=== PATIENT | male | born 1995 | race Caucasian/White ===

== ENCOUNTER 2024-07-18 23:12 | Emergency (ER) | payer BC, SELFPAY ==
--- NOTE | ~2024-07-18 | XR_ITS ---
PA, oblique, and lateral views of the left index finger Clinical history laceration FINDINGS: No acute fracture or dislocation. Joint spaces are preserved. Possible soft tissue lacerati on of the midportion of the neck finger. IMPRESSION: No osseous or articular abnormality. Probable soft tissue laceration of the midportion of the index finger. Reviewed, dictated and finalized at [facility].
[2024-07-18 23:13] VITALS: BP 141/77; PULSE 101; RESP 20; TEMP 36.4; O2SAT 100
--- OUTSIDE RECORDS SUMMARY | 2024-07-18 23:14 | XMS_ITS | Data Portability ---
Author Organization [place] [facility], [place] - [facility] Address [address] [place] [address] Care Team Providers Care Client Technical Support Associate Name Role Phone BARNEYPABLO Primary Care Provider Assessment Encounter Date Assessment Date Assessment LastModified by Organization Details LastModified Time 05/20/2023 05/20/2023 I educated the patient to the 70-73% rate of efficacy for Lamisil and the fact that it takes almost a year for complete resolution. I discussed the medication and its occasional adverse effects. We also discussed the fact that as long as you have no pre-existing liver conditions such as cirrhosis, cysts or hepatitis, there is no increased rate of adverse reactions. Today I ordered a hepatic function panel test. Once the labs are recieved and normal, a prescription for pulse-dosed oral antifungal will be dispensed. The etiology and treatment options for chronic tinea pedis were discussed in detail with the patient. The patient can help alleviate symptoms by aerating toe web spaces at night by putting cotton or tissue in between toes, alternating shoes daily if possible so shoes can dry out, changing socks at least once during the day, wearing well-ventilated shoes or sandals, Written instructions regarding tinea pedis preventative care dispensed. The patient should purchase moisture wicking socks containing synthetic material like CoolMax and avoid using cotton socks. The patient was advised that more permanent resolution of chronic dermatophytosis requires complete treatment of his mycotic nails to help prevent recurrence. An Rx for terbinafine 1% cream will be applied to both feet daily. Clean Sweep spray dispensed to disinfect footwear and patient advised to launder socks in hot water and to purchase moisture wicking socks. f/u 3 months. May consider adding laser treatment if minimal improvement. [email or web address] Not available 05/20/2023 17:01:28 Plan of Treatment Reminders Order Date Submit Date Provider Last Modified By Organization Details Last Modified Time Details Appointments None recorded . Lab hepatic function panel, serum 2023 [facility], [address] [facility], [place], [address], 13:21:27 Referral None recorded . Procedures None recorded . Surgeries None recorded . Imaging None recorded . Medication Orders terbinaf ine HCl 1 % topical cream 2023 [id number], [address], [place], [phone], 16:56:53 Patient TargetsNo targets recorded. Patient Instructions Encounter Date Encounter Id Patient Instructions Last Modified By Organization Details Last Modified Time 05/20/2023 [id number] toenail fungus: care instructions [email or web address] Not available 05/20/2023 16:55:44 athlete's foot: care instructions [email or web address] Not available 05/20/2023 16:55:44 Reason for Referral None Reported. Results Created Date Observation Date Name Description Value Unit Range Abnormal Flag Note LastModifiedBy Organization Detail LastModifiedTime 05/24/19 24 05/26/2023 HEPAT IC FUNCT ION PANEL protein, total 7.4 g/dL 6.1-8. 1 normal Not Available [employer] [facility] [address] [place], [address], 05/26/2023 13:21:26 05/24/19 24 05/26/2023 HEPAT IC FUNCT ION PANEL albumin 4.9 g/dL 3.6-5. 1 normal Not Available [employer] [facility] [address] [place], [address], 05/26/2023 13:21:26 05/24/19 24 05/26/2023 HEPAT IC FUNCT ION PANEL globulin 2.5 g/dL_ (calc ) 1.9-3. 7 normal Not Available [place] [address] [place], [address], 05/26/2023 13:21:26 05/24/19 24 05/26/2023 HEPAT IC FUNCT ION PANEL albumin/glob ulin ratio 2.0 (calc ) 1.0-2. 5 normal Not Available [place] [address] [place], [address], 05/26/2023 13:21:26 05/24/19 24 05/26/2023 HEPAT IC FUNCT ION PANEL bilirubin, total 1.5 mg/dL 0.2-1. 2 high Not Available [employer] [place] [address] [place], [address], 05/26/2023 13:21:26 05/24/19 24 05/26/2023 HEPAT IC FUNCT ION PANEL bilirubin, direct 0.3 mg/dL < or = 0.2 high Not Available [place] [address] [place], [address], 05/26/2023 13:21:26 05/24/19 24 05/26/2023 HEPAT IC FUNCT ION PANEL bilirubin, indirect 1.2 mg/dL _(chico c) 0.2-1. 2 normal Not Available [place] [address] [place], [address], 05/26/2023 13:21:26 05/24/19 24 05/26/2023 HEPAT IC FUNCT ION PANEL alkaline phosphatase 64 U/L 36-130 normal Not Available [facility] [place] [place] [address] [place], [address], 05/26/2023 13:21:26 05/24/19 24 05/26/2023 HEPAT IC FUNCT ION PANEL AST 15 U/L 10-40 normal Not Available [place] [address] [place], [address], 05/26/2023 13:21:26 05/24/19 24 05/26/2023 HEPAT IC FUNCT ION PANEL ALT 17 U/L 9-46 normal Not Available [employer] [facility] [address] [place], [address], 05/26/2023 13:21:26 Result Notes None recorded. Procedures Surgical History Date Name Laterality Status Provider Name and Address Organization Details Recorded Time [id number] Nail unit biosy SK completed Jake Bowden, Brianne [address] [place] [address], [phone], [facility] 05/20/2023 16:54:11 Imaging Results None recorded. Procedure Notes None recorded. Medical Equipment None Reported. Allergies No known drug allergies Medications Name Sig Start Date Stop Date Status Note LastModified by Organization Details LastModified Time EB-L2 APPLY DAILY TO AFFFECTED TOENAILS 2023 active Not Available Not Available Not Avai lable buspirone 5 mg tablet TAKE 1 TABLET BY MOUTH THREE TIMES DAILY active Not Available Not Available Not Available terbinafine HCl 1 % topical cream APPLY TO THE AFFECTED AND SURROUNDING AREAS OF SKIN BY TOPICAL ROUTE ONCE DAILY 2023 active Not Available Not Available Not Avai lable dextroamphet amine-amphet amine 10 mg tablet TAKE 1/2 TABLET BY MOUTH TWICE DAILY active Not Available Not Available No t Available ciclopirox 8 % topical solution APPLY TO AFFECTED AREA TOPICALLY. PERFERABLY AT BEDTIME OR 8 HOURS BEFORE WASHING active Not Available Not Available No t Available terbinafine HCl 250 mg tablet TAKE 1 TABLET BY MOUTH EVERY DAY FOR 1 WEEK THEN STOP FOR 1 MONTH AND. REPEAT FOR 6 TOTAL PULSES active Not Available Not Available No t Available hydroxyzine HCl 25 mg tablet TAKE 1 TABLET BY MOUTH TWICE DAILY NEEDED FOR ANXIETY active Not Available Not Available No t Available sertraline 50 mg tablet TAKE 1 TABLET BY MOUTH EVERY DAY active Not Available Not Available No t Available buspirone active Not Available Not Soraida ilable Not Available Vitals Date Recorded Body height Body mass index (BMI) Body weight Body height Body mass index (BMI) Body weight Provider Name and Address Organization Details Last Updated DateTime 05/20/2023 180.34 cm 25.5 kg/m2 78774.4 g 180.34 cm 25.5 kg/m2 79339.4 g Dimple Srinivasan [facility] 16:43:48 Social History Question Answer Notes LastModified by Organizat ion Details LastModified Time Tobacco Smoking Status Never Smoker [place], [facility] 05/20/2023 16:38:27 What Is Your Level Of Alcohol Consumption? Heavy [email or web address] Information not available 05/20/2023 Size Of Shoes 10.5-11 [email or web address] Information not available 05/20/2023 Do You Use Any Illicit Or Recreational Drugs? No [email or web address] Information not available 05/20/2023 Do You Or Have You Ever Used Any Other Forms Of Tobacco Or Nicotine? No [email or web address] Information not available 05/20/2023 Sex: Unknown Functional Status Question Answer Note LastModified by Organization D etails LastModified Time What is your exercise level? Heavy [email or web address] Information not available 05/20/2023 Mental Status None recorded. Family History Relationship Description Onset Age of this Age Resolved Age Notes LastModified by Organization Details LastModified Time Father No current problems or disability [email or web address] Not available 05/05 16:38:19 Mother No current problems or disability [email or web address] Not available 05/05 16:38:19 Medical History Condition Response HIV or AIDS N Coronary Artery Disease N Seizure Disorder N Gout N High Blood Pressure N Menopause N Lung Condition N Depression N Pacemaker N Sciatica N Urinary Tract Infections N Anxiety Disorder N Arthritis N Ear Problems N Cancer N Eye Problems N Stroke N Stomach Problems N High Cholesterol N Liver Disease N Rheumatoid Arthritis N Rash N Kidney Disease N Tuberculosis or TB N Ulcers on Legs or Feet N Heart Problems N Clot in Lung or Pulmonary Embolism N Phlebitis or Venous Blood Clot N Migraines N Anemia N Back Pain N Neurologic Disease N Heart Attack (NE) N Diabetes N Bleeding Disorder N Abuse of Alcohol or Drugs N Back injury N Dementia N Peripheral Vascular Disease N Sinus Conditions N Thyroid Disorder N Broken Bone N Hepatitis N Heart Disease N Osteoporosis N Past Encounters Encounter ID Performer Location Encounter Start Date Encounter Closed Date Diagnosis/Indication Diagnosis SNOMED-CT Code Diagnosis ICD10 Code Diagnosis Note [id number] LAURO EsparzaM [facility] [address] [place] [address] 05/20/2023 16:26:13 05/20/2023 16:54:04 Onychomycosis 917863758 B35.1 1-5 bilateral- moderate Tinea pedis 5557618 B35. 3 forefoot distributi on, mild Pain in toe 094705707 M7 9.675 M79.674 Health Concerns Section Related Observation LastModified by Organization Detai ls LastModified Time None Recorded Concern Status LastModified by Organization Details LastModified Time None Recorded Advance Directives Directive None Recorded Payers Encounter Date Sequence Insurance Name Policy Number Policy Rivas Covered Member ID Rivas Member ID Guarantor Name 05/20/2023 1 [employer] KIERA MASON ([place]O) [id number] Kurt Culp [id number] Kurt Culp Notes Date Note Type Note Provider Name and Address Organization Details Recorded Time 05/20/2023 text/html Nails--Reported bypatient.Location: toenails left 1 2 3 4 5; toenails right 1, 2, 3, 4, 5 Nature:occasional sharp or shooting pain Severity:moderate Duration:several years Timing:gradual since last treatment Onset:all shoes apply uncomfortable pressure Alleviating Factors:cessation of activity; relief with treatment Aggravating Factors:precipitate d by wearing shoes; pressure Associated Symptoms:too thick to cut with clippers at home; afraid of causing an infection at home Course:has stayed the same Previous Treatment:topical OTC antifungal; using VicksNotes:Patient presents for bilateral fungal nails. Patient states this has been present for 6-7 years and he has tried Vicks VapoRub as well as a topical and a cream over the counter antifungal with no relief of symptoms.. Patient also has some dry, scaly, nonpruritic skin on the bottom of the forefoot. Jake Bowden DPM [address] [place], [address], [facility] 05/20/2023 17:01:55
--- OUTSIDE RECORDS SUMMARY | 2024-07-18 23:14 | XMS_ITS ---
Author Organization [facility] [employer] Address [address] [place] [address] Care Team Providers Care Fundraising Specialist Name Role Phone Enrico Kraft MD Primary Care Provider UnavailRoopa Lawler Unavailable [phone] Bladimir Infante Unavailable [phone] REASON FOR VISIT Telehealth, mild depression, anxiety and difficulty controlling thought patterns , Depression screening positive Medications Medication SIG (Take, Route, Frequency, Duration) Notes Start Date End Date Status hydrOXYzine HCl 25 MG Oral 09/15/2023 Unknown L-Methylfolate 7.5 MG Oral 09/15/2023 Unknown Ciclopirox 8% External 09/15/2023 Unkno wn busPIRone HCl 5 MG Oral 09/15/2023 Unknown Sertraline HCl 50 MG TAKE 1.5 TABLETS BY MOUTH ONCE A DAY for 90 Active Terbinafine HCl 250 MG Oral 09/15/2023 Unknown Adderall 10 MG 1 tablet Oral in the morning and half a tablet in the afternoon for 30 days 05/11/2024 Active Amphetamine-Dextroamphetam ine 10 MG Oral 09/15/2023 Unknown Social History Sex Assigned At : Social History Observation Description Sex Assigned At Male Encounters Encounter Location Date Provider Diagnosis [facility] [employer] [facility] [address] [place] [address] 06/22/2024 Bladimir Infante Generalized anxiety disorder F41.1 and Recurrent major depressive episodes, mild F33.0 Assessments Encounter Date Diagnosis (ICD Code) Assessment Notes Treatment Notes Treatment Clinical Notes Section Notes 06/22/2024 Generalized anxiety disorder (ICD-10 - F41.1) 28 year old single never male seen today for initial assessment to start individual psychotherapy. Stated that he has seen Roopa Recinos for the past month for medication therapy. Hx of anxiety and bouts of depression reported by client. Believes anxiety has been present for as long as he can recall. Client when asked what he worries the most about stated; I hyper fixate on things that will probably never happen , what if thoughts, and getting into trouble(in general and at work). Added that as a child he was hyper sensitive. Depression symptoms(before medication); feeling sick of being anxious, some problems experiencing norma in his life and lower appetite. Family hx is positive for anxiety(father) . No psych admissions reported or out patient therapy reported.Client born and raised in [place], [place] but later moved to [place], [place] to parents who have been for 30 years years. Relationship with parents is good and spends a lot of time with them. Described childhood as good, never had any big problems and had a lot of friends. Client is the youngest of two, older brother. Stated that they are friendly but would not call him a good friend. Client has no children. Stated that the hardest thing about being him is these issues (anxiety). 06/22/2024 Recurrent major depressive episodes, mild (ICD-10 - F33.0) 28 year old single never male seen today for initial assessment to start individual psychotherapy. Stated that he has seen Roopa Recinos for the past month for medication therapy. Hx of anxiety and bouts of depression reported by client. Believes anxiety has been present for as long as he can recall. Client when asked what he worries the most about stated; I hyper fixate on things that will probably never happen , what if thoughts, and getting into trouble(in general and at work). Added that as a child he was hyper sensitive. Depression symptoms(before medication); feeling sick of being anxious, some problems experiencing norma in his life and lower appetite. Family hx is positive for anxiety(father) . No psych admissions reported or out patient therapy reported.Client born and raised in [place], [place] but later moved to [place], [place] to parents who have been for 30 years years. Relationship with parents is good and spends a lot of time with them. Described childhood as good, never had any big problems and had a lot of friends. Client is the youngest of two, older brother. Stated that they are friendly but would not call him a good friend. Client has no children. Stated that the hardest thing about being him is these issues (anxiety). 06/22/2024 Other Clinical Notes : Client participated in individual psychotherapy([facility] T/Supportive) related to his hx of anxiety and depression. Seen today via telehealth from his home due to inclement weather. Based on today's session continued psychotherapy is recommended with no changes to treatment plan. Client presented to session well groomed and fully oriented with no risk of harm to self or others. Client verbal and engaged through out session with appropriate mood and affect. Reported upon presentation that he has been pretty good since last seen on 05.24.2024. Added that he and kali were on 06.18.[address] with plans of having actual weddinng ceremony at later date. Noted that he has been experiencing low energy for the past several days and has questioned whether he is a little depressed or not. Admitted however that he has not been as active as he nomally is due to the winter weather. Client further shared that he has been strggling, a little, with healthy emotional regulation and not taking on 's negative emotions. Client encouraged to balance emotions with logic as well as reading Co- Dependant No More by Angeli Dinh. On a positive note stated that he has done a better job of setting boundaries at work. Client receptive to session feeedback. Next session in three weeks. 28 year old single never male seen today for initial assessment to start individual psychotherapy. Stated that he has seen Roopa Recinos for the past month for medication therapy. Hx of anxiety and bouts of depression reported by client. Believes anxiety has been present for as long as he can recall. Client when asked what he worries the most about stated; I hyper fixate on things that will probably never happen , what if thoughts, and getting into trouble(in general and at work). Added that as a child he was hyper sensitive. Depression symptoms(before medication); feeling sick of being anxious, some problems experiencing norma in his life and lower appetite. Family hx is positive for anxiety(father) . No psych admissions reported or out patient therapy reported.Client born and raised in [place] but later moved to [place], [place] to parents who have been for 30 years years. Relationship with parents is good and spends a lot of time with them. Described childhood as good, never had any big problems and had a lot of friends. Client is the youngest of two, older brother. Stated that they are friendly but would not call him a good friend. Client has no children. Stated that the hardest thing about being him is these issues (anxiety). 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 A nger management H x denied by client . A nxiety w ith excessive worry(about, worse case thinking) with low energy. at times, with restlessness which has been long-standing, as long a he can recall, aggravated by difficult work, financial and/or relationship issues and relieved by compliance with medication therapy active counseling . D epression w ith decreased concentration(somewhat) with decreased energy(a litttle), with feelings of guilt( sometimes ), with sad mood(at times), with feeling of hopelessness and helplessness(at times) which has been long-standing aggravated by difficult work, financial and/or relationship issues and relieved by compliance with medication therapy active counseling . H omicidal ideation Hx denied by client . M ood lability H x denied by client . O bsessive thoughts H x of uncertainty, which are accompanied by compulsive behaviors or rituals which cause marked distress which interfere with activities of daily living which has been long-standing aggravated by difficult work, financial and/or relationship issues and relieved by compliance with medication therapy active counseling . P sychosis H x denied by client . S leep disturbance H x denied by client . S ubstance abuse H x denied by client . S uicidal ideation H x denied for attempts and ideations. A DHD D iagnosed with ADHD eariler this and has been medicated, has difficulty organizing tasks and activities . P sychotherapy ?Hx denied for psychotherapy; currently sees A robert . P TSD H x denied by client. M abhijeet N o impairment present or history of memory concerns reports. . ? 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 C urrent probation / parole n o . H istory of arrests n o . H istory of incarcerations n o . Legal history n o . P ending charges n o . D epression screening: PHQ-9 L ittle interest or pleasure in doing things?Several days F eeling down, depressed, or hopeless S everal days T rouble falling or staying asleep, or sleeping too much S everal days F eeling tired or having little energy M ore than half the days P oor appetite or overeating N ot at all F eeling bad about yourself or that you are a failure, or have let yourself or your family down N ot at all T rouble concentrating on things, such as reading the newspaper or watching television N ot at all M oving or speaking so slowly that other people could have noticed; or the opposite, being so fidgety or restless that you have been moving around a lot more than usual N ot at all T houghts that you would be better off or of hurting yourself in some way N ot at all T otal Score 5 I nterpretation M ild Depression Intervention D epression Screening Findings P ositve F ollow-Up for Depression M ental health treatment assessment, Patient follow-up to return when and if necessary S uicide Risk Assessment Performed 0 06/22/2024 A dditional Evaluation for Depression P sychiatric interview and evaluation N [place] of the standardized tool used for adult depression screening: [facility] * Medical History: * Surgical History: * Hospitalization/Major Diagno stic Procedure: * Medications: T akingAdderall 10 MG Tablet 1 tablet Oral in the morning and half a tablet in the afternoon Sertraline HCl 50 MG Tablet TAKE 1.5 TABLETS BY MOUTH ONCE A DAY Taking Adderall 10 MG Tablet 1 tablet Oral in the morning and half a tablet in the afternoon Taking Sertraline HCl 50 MG Tablet TAKE 1.5 TABLETS BY MOUTH ONCE A DAY UnknownbusPIRone HCl 5 MG Tablet Oral L-Methylfolate 7.5 MG Tablet Oral Ciclopirox 8% Solution External hydrOXYzine HCl 25 MG Tablet Oral Amphetamine- Dextroamphetamine 10 MG Tablet Oral Terbinafine HCl 250 MG Tablet Oral Medication List reviewed and reconciled with the patientUnknown busPIRone HCl 5 MG Tablet Oral Unknown L-Methylfolate 7.5 MG Tablet Oral Unknown Ciclopirox 8% Solution External Unknown hydrOXYzine HCl 25 MG Tablet Oral Unknown Amphetamine-Dextroamphetamine 10 MG Tablet Oral Unknown Terbinafine HCl 250 MG Tablet Oral Medication List reviewed and reconciled with the patient * Vitals: Assessment: * Assessment: 1. G eneralized anxiety disorder - F41.1 (Primary) 2 . R ecurrent major depressive episodes, mild - F33.0 28 year old single never mar ried male seen today for initial assessment to start individual psychotherapy. Stated that he has seen Roopa Recinos for the past month for medication therapy. Hx of anxiety and bouts of depression reported by client. Believes anxiety has been present for as long as he can recall. Client when asked what he worries the most about stated; I hyper fixate on things that will probably never happen , what if thoughts, and getting into trouble(in general and at work). Added that as a child he was hyper sensitive. Depression symptoms(before medication); feeling sick of being anxious, some problems experiencing norma in his life and lower appetite. Family hx is positive for anxiety(father). No psych admissions reported or out patient therapy reported.Client born and raised in [place] but later moved to [place], [place] to parents who have been for 30 years years. Relationship with parents is good and spends a lot of time with them. Described childhood as good, never had any big problems and had a lot of friends. Client is the youngest of two, older brother. Stated that they are friendly but would not call him a good friend. Client has no children. Stated that the hardest thing about being him is these issues (anxiety). Plan: * Treatment: * Procedure Codes: 9 6127 BEHAV ASSMT W/SCORE & DOCD/STAND [id number] CLIN DEPRESSION SCREEN [id number] PSYCHOTHERAPY W/PATIENT 30 MINUTES, Modifiers: 95 * Follow Up: 3 Weeks * Billing Information: * Visit Code: * Procedure Codes: 79980 BEHAV ASSMT W/SCORE & DOCD/STAND INSTRUMENT. G8431 CLIN DEPRESSION SCREEN DOC. 90946 PSYCHOTHERAPY W/PATIENT 30 MINUTES. Modifiers: 95 * EAR STATION OPERATOR Sign off status: Completed Signatures: No Ad Hoc Signature Added true * Provider: Alberto Infante LCPC Date: 0 06/22/2024 Generated for Hector dejesus/Cory/Lisetteitting on: 0 07/18/2024 11:14 PM CDT History and Physical Notes * HPI (History of Present Illness) Category Sub-Category Detail Notes Category Not es Depression screening PHQ-9 Little inte rest or pleasure in doing things: Several days Feeling down, depressed, or hopeless: Se veral days Trouble falling or staying asleep, or sl eeping too much: Several days Feeling tired or having little energy: M ore than half the days Poor appetite or overeating: Not at all Feeling bad about yourself o r that you are a failure, or have let yourself or your family down: Not at all Trouble concentrating on thi ngs, such as reading the newspaper or watching television: Not at all Moving or speaking so slowly that other people could have noticed; or the opposite, being so fidgety or restless that you have been moving around a lot more than usual: Not at all Thoughts that you would be b grant off or of hurting yourself in some way: Not at all Total Score: 5 Interpretation: Mild Depression Intervention Depression Screening Findings: P baron Follow-Up for Depression: [facility] treatment assessment, Patient follow-up to return when and if necessary Suicide Risk Assessment Performed: 06/22 Additional Evaluation for Depression: Ps ychiatric interview and evaluation Name of the standardized too l used for adult depression screening:: Patient Health Questionnaire (PHQ-9) Functional Status Referral s ource My dad . Anger management Hx denied by client . Anxiety with excessive worry(about, worse case thinking) with low energy. at times, with restlessness which has been long-standing, as long a he can recall, aggravated by difficult work, financial and/or relationship issues and relieved by compliance with medication therapy active counseling . Depression with decreased concentration(somewhat) with decreased energy(a litttle), with feelings of guilt( sometimes ), with sad mood(at times), with feeling of hopelessness and helplessness(at times) which has been long-standing aggravated by difficult work, financial and/or relationship issues and relieved by compliance with medication therapy active counseling . Homicidal ideation Hx denied by client . Mood lability Hx denied by client . Obsessive thoughts Hx of uncertainty, which are accompanied by compulsive behaviors or rituals which cause marked distress which interfere with activities of daily living which has been long-standing aggravated by difficult work, financial and/or relationship issues and relieved by compliance with medication therapy active counseling . Psychosis Hx denied by client . Sleep disturbance Hx denied by client . Substance abuse Hx denied by client . Suicidal ideation Hx denied for attempts and ideations. ADHD Diagnosed with ADHD eariler this and has been medicated, has difficulty organizing tasks and activities . Psychotherapy Hx denied for psychotherapy; currently sees Bladimir . PTSD Hx denied by client. Memory No impairment present or history of memory concerns reports. . 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 Current probation / parole no . History of arrests no . History of incarcerations no . Legal history no . Pending charges no .
--- OUTSIDE RECORDS SUMMARY | 2024-07-18 23:15 | XMS_ITS ---
Author Organization [facility] Address [facility] [facility] [address] [place] [address] Care Team Providers Care Paralegal Specialist Name Role Phone Enrico Kraft MD Primary Care Provider Roopa Martinez Unavailable [phone] Allergies No Known Allergies REASON FOR VISIT Telehealth Medications Medication SIG (Take, Route, Fr equency, Duration) Notes Start Date End Date Status Adderall 10 MG 0.5 tablet Oral Twic e a day for 30 days 06/22/2024 Active Terbinafine HCl 250 MG Oral 09/15/2023 Unknown Sertraline HCl 50 MG 1.5 tablet Oral Onc e a day for 90 days Active L-Methylfolate 7.5 MG Oral 09/15/2023 Unknown Sertraline HCl 50 MG TAKE 1.5 TABLETS BY MOUTH ONCE A DAY for 90 Active Social History Sex Assigned At : Social History Observation Description Sex Assigned At Male Encounters Encounter [facility] [address] [facility] [address] [place] [address] 06/22/2024 Roopa Recinos Attention-deficit hyperactivity disorder, combined type F90.2 ; Major depressive disorder, recurrent, mild F33.0 and Generalized anxiety disorder F41.1 Assessments Encounter Date Diagnosis (ICD Code) Assessment Notes Treatment Notes Treatment Clinical Notes Section Notes 06/22/2024 Attention-deficit hyperactivity disorder, combined type (ICD-10 - F90.2) ADHD Stimulant Education -Discussed with patient risk of misuse, abuse, and addiction before prescribing stimulant medicines. -Counseled not to share their prescribed stimulant with anyone else. -Educated patient will monitor during treatment: regularly assess and monitor them for signs and symptoms of nonmedical use, addiction, and potential diversion, which may be evidenced by more frequent renewal requests and medication metabolites absent from urine drug screens. -Random UDS (at least every three months or more frequently deemed by provider). -Per office policy, only prescribed to local pharmacy in [place], no early refills on control substance. 06/22/2024 Major depressive disorder, recurrent, mild (ICD-10 - F33.0) SSRI/SNRI side effects discussed including but not limited to, gastric upset, nausea, vomiting, diarrhea and/or constipation, weight changes, sexual side effects including loss of libido, increased suicidal thoughts/behavio rs in children and young adults, and serotonin syndrome. 06/22/2024 Generalized anxiety disorder (ICD-10 - F41.1) 06/22/2024 Other Stable, cont current medications. Refills sent in today. Patient educated on all medications including potential benefits, side effects, risks. Educated on proper dosing schedule and importance of compliance. [place] checked and consistent with prescription history, no controlled substance prescriptions from other providers. -Assessment and treatment plan reviewed with patient. -Compliance with treatment plan importance discussed. -Discussed the risks/benefits of this medication -Discussed medication side effects. -Contact office if symptoms worsen. -Discussed that it can take up to 6-8 weeks to see full therapeutic effects of psychotropic medications. -Crisis prevention hotline 988. Plan Of Treatment Medication Medication Name Sig Start Date Stop Date Notes Adderall 10 MG 0.5 tablet Oral Twic e a day for 30 days 06/22/2024 Sertraline HCl 50 MG 1.5 tablet Oral Onc e a day for 90 days Treatment Notes Assessment Notes Attention-deficit hyperactiv ity disorder, combined type ADHD Stimulant Education -Discussed with patient risk of misuse, abuse, and addiction before prescribing stimulant medicines. -Counseled not to share their prescribed stimulant with anyone else. -Educated patient will monitor during treatment: regularly assess and monitor them for signs and symptoms of nonmedical use, addiction, and potential diversion, which may be evidenced by more frequent renewal requests and medication metabolites absent from urine drug screens. -Random UDS (at least every three months or more frequently deemed by provider). -Per office policy, only prescribed to local pharmacy in [place], no early refills on control substance. Major depressive disorder, recurrent, mi ld SSRI/SNRI side effects discussed including but not limited to, gastric upset, nausea, vomiting, diarrhea and/or constipation, weight changes, sexual side effects including loss of libido, increased suicidal thoughts/behaviors in children and young adults, and serotonin syndrome. Other Stable, cont current medications. Refills sent in today. Patient educated on all medications including potential benefits, side effects, risks. Educated on proper dosing schedule and importance of compliance. [place] report checked and consistent with prescription history, no controlled substance prescriptions from other providers. Next Appt Details Follow Up: 3 Months, Reason: med follow up Provider Name:Roopa Recinos, 08/16/2024 04:30:00 PM, [address], [facility] [address], [place], [address], Progress Notes * CHET JOHANNA ADOB:1995 (29 yo M)Acc No.[id number]:06/22/2024 Patient: JOHANNA GREENFIELD Provider: TORSTEN ADHIKARIHNP :1995 A ge:29 Y S ex:Male Date:06/22/2024 Address:[address] [place], [place] [id number] Pcp:Enrico Kraft MD Check In:03:11 PM CSTCheck O ut:03:20 PM CHIEF RADIOLOGIC TECHNOLOGIST Subjective: * Chief Complaints: * T [facility] * HPI: H istory of Presenting Problem: Anxiety R ates anxiety 2/10 with 10 being most severe. Denies recent panic attacks. . Depression D enies feeling depressed. . Mood lability N o hx mary ellen. Psychosis N o hx psychosis . Suicidal ideation D enies. ADHD f orgetful in daily activities, easily distracted by extraneous stimuli, has difficulty organizing tasks and activities, has difficulty sustaining attention in tasks or play activity- stable on Adderall . Psychotherapy A lbizzy. Here for medication follow up. No medication changes made last apt. Reports he is doing well. He and his fiance decided to get at the [facility], although not telling anyone until their ceremony in February. Reports the last two weeks, his mood has been slightly lower than normal; that mostly happens in the afternoons . Motivation is fair. Denies feeling hopeless and helpless, no suicidal ideation. Anxiety is doing pretty well, I haven't hyperfixated on anything in a while . Denies recent panic attacks. ADHD is stable, I am pretty happy where the Adderall is at . Sleep is good, getting about 7-8 hours nightly. Appetite is good. Denies weight changes. P ast Psychiatric Hospitalizations: Social hx: Has a girlfriend of one year. No children. Has master's degree. 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 Medical hx: Denies chronic medical history. Denies history of head trauma or seizures. Previous Psychiatric History previous admissions/IOP/PHP: denies history of SI/SA: denies family psychiatric history: father-anxiety. previously trialled medications: buspar. history of neglect/abuse/trauma: denies substance use history: denies. Social alcohol use. Quit nicotine about 5 months ago. D epression screening: PHQ-9 L ittle interest or pleasure in doing things?Not at all F eeling down, depressed, or hopeless S everal days T rouble falling or staying asleep, or sleeping too much S everal days F eeling tired or having little energy S everal days P oor appetite or overeating N [...] in some way N ot at all Intervention D epression Screening Findings N egative S uicide Risk Assessment Performed _ F unctional Status: The patient was seen today for Tele visit. [place] __x___patient is seen at HOME Pt is seen at other than Home [facility] the session was conducted via a HIPAA-compliance audio/visual platform. * ROS: P sychiatric: Patient denies d epressed mood, psychosis, suicidal thoughts, mary ellen, auditory / visual hallucinations, difficulty concentrating, irritability. P atient complains of a nxiety. C lissa Deras [facility] for details. * Medical History: * Medications: T akingAdderall 10 MG Tablet [...] 1.5 TABLETS BY MOUTH ONCE A DAY DiscontinuedbusPIRone HCl 5 MG Tablet Oral Ciclopirox 8% Solution External hydrOXYzine HCl 25 MG Tablet Oral Amphetamine-Dextroamphetamine 10 MG Tablet Oral Discontinued busPIRone HCl 5 MG Tablet Oral Discontinued Ciclopirox 8% Solution External Discontinued hydrOXYzine HCl 25 MG Tablet Oral Discontinued Amphetamine-Dextroamphetamine 10 MG Tablet Oral UnknownL-Methylfolate 7.5 MG Tablet Oral Terbinafine HCl 250 MG Tablet Oral Medication List reviewed and reconciled with the patientUnknown L-Methylfolate 7.5 MG Tablet Oral Unknown Terbinafine HCl 250 MG Tablet Oral Medication List reviewed and reconciled with the patient * Allergies: N .K.D.A.no[Allergies Verified] Objective: * Vitals: * Examination: P sychiatry: Appearance: w ell-groomed. Abnormal body movements: n one. Affect / mood: a ppropriate. Attention: g ood. Attitude: c ooperative. Homicidal ideation: n one. Suicidal ideation: n one. Degree of awareness of surroundings: w ithin normal limits.? Delusions: n o. Hallucinations: n o. Insight: g ood. Judgement: g ood. Orientation: a wake, alert and oriented x 3. Perceptual disorders: n o perceptual disorder noted. Psychomotor activity: w ithin normal range. Speech / language: n ormal rate, volume, and articulation (RVR). Thought content: a ppropriate. Thought process: i ntact. Assessment: * Assessment: 1. A ttention-deficit hyperactivity disorder, combined type - F90.2 (Primary) 2 . M ajor depressive disorder, recurrent, mild - F33.0 3 . G eneralized anxiety disorder - F41.1 Plan: * Treatment: 2. M ajor depressive disorder, recurrent, mild Refill Sertraline HCl Tablet, 50 MG, 1.5 tablet, Oral, Once a day, 90 days, 135, Refills 0. ? Notes: SSRI/SNRI side effects discussed including but not limited to, gastric upset, nausea, vomiting, diarrhea and/or constipation, weight changes, sexual side effects including loss of libido, increased suicidal thoughts/behaviors in children and young adults, and serotonin syndrome. 3. O thers Notes: Stable, cont current medications. Refills sent in today. Patient educated on all medications including potential benefits, side effects, risks. Educated on proper dosing schedule and importance of compliance. [place] checked and consistent with prescription history, no controlled substance prescriptions from other providers. Clinical Notes: -Assessment and treatment plan reviewed with patient. -Compliance with treatment plan importance discussed. -Discussed the risks/benefits of this medication -Discussed medication side effects. -Contact office if symptoms worsen. -Discussed that it can take up to 6-8 weeks to see full therapeutic effects of psychotropic medications. -Crisis prevention hotline 988. * Procedure Codes: 9 6127 BEHAV ASSMT W/SCORE & DOCD/STAND [id number] VISIT COMPLEXITY INHERENT TO ONGOING CARE RELATED TO A PATIENT'S SINGLE, SERIOUS CONDITION OR A COMPLEX [id number] CLIN DEPRESSION SCREEN DOC * Follow Up: 3 Months (Reason: med follow up) * Billing Information: * Visit Code: 24797 OFFICE OUTPATIENT VISIT 25 MINUTES DETAILED HISTORY AND EXAM/MODERATE MEDICAL DECISION MAKING. Modifiers: 95 * Procedure Codes: 12419 BEHAV ASSMT W/SCORE & DOCD/STAND INSTRUMENT. G2211 VISIT COMPLEXITY INHERENT TO ONGOING CARE RELATED TO A PATIENT'S SINGLE, SERIOUS CONDITION OR A COMPLEX CONDITION. G8431 CLIN DEPRESSION SCREEN DOC. * F RADIOLOGIC TECHNOLOGIST Sign off status: Completed true * Provider: DOMINGO ADHIKARI Date: 0 06/22/2024 Generated for Hector dejesus/Cory/Andrea on: 0 07/18/2024 11:15 PM CDT History and Physical Notes * HPI (History of Present Illness) Category Sub-Category Detail Notes Category Not es History of Presenting Problem Anxiety Rates anxiety 2/10 with 10 b eing most severe. Denies recent panic attacks. Here for medication follow up. No medication changes made last apt. Reports he is doing well. He and his fiance decided to get at the [facility], although not telling anyone until their ceremony in February. Reports the last two weeks, his mood has been slightly lower than normal; that mostly happens in the afternoons . Motivation is fair. Denies feeling hopeless and helpless, no suicidal ideation. Anxiety is doing pretty well, I haven't hyperfixated on anything in a while . Denies recent panic attacks. ADHD is stable, I am pretty happy where the Adderall is at . Sleep is good, getting about 7-8 hours nightly. Appetite is good. Denies weight changes. Depression Denies feeling depre ssed. Suicidal ideation Denies Psychosis No hx psychosis Mood lability No hx mary ellen ADHD forgetful in daily a ctivities, easily distracted by extraneous stimuli, has difficulty organizing tasks and activities, has difficulty sustaining attention in tasks or play activity- stable on Adderall Psychotherapy Bladimir Past Psychiatric Hospitalizations Social hx: Has a girlfriend of one year. No children. Has master's degree. 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 Medical hx: Denies chronic medical history. Denies history of head trauma or seizures. Previous Psychiatric History previous admissions/IOP/PHP: denies history of SI/SA: denies family psychiatric history: father-anxiety. previously trialled medications: buspar. history of neglect/abuse/trauma: denies substance use history: denies. Social alcohol use. Quit nicotine about 5 months ago. Depression screening PHQ-9 Little inte rest or pleasure in doing things: Not at all Feeling down, depressed, or hopeless: Se veral days Trouble falling or staying asleep, or sl eeping too much: Several days Feeling tired or having little energy: S everal days Poor appetite or overeating: Not at [...] yourself in some way: Not at all Intervention Depression Screening Findings: N egative Suicide Risk Assessment Performed: ____ Examination Category Sub-Category Detail Notes Category Not es Psychiatry Appearance: well-groomed Attitude: cooperative Psychomotor activity: within normal rang e Abnormal body movements: none Attention: good Degree of awareness of surroundings: wit hin normal limits Orientation: awake, alert and ashleigh ented x 3 Affect / mood: appropriate Speech / language: normal rate, volume, and articulation (RVR) Insight: good Judgement: good Thought process: intact Thought content: appropriate Perceptual disorders: no perceptual diso rder noted Suicidal ideation: none Homicidal ideation: none Delusions: no Hallucinations: no
--- OUTSIDE RECORDS SUMMARY | 2024-07-18 23:15 | XMS_ITS | Patient Health Summary ---
Author Organization [facility] [employer] Address [address] [place] [address] Care Team Providers Care Systems Technologist Name Role Phone Enrico Kraft MD Primary Care Provider [phone] Note from [facility] [employer] [facility],non-owned Affiliates and Associated Physician Practices is amultiple site organization consisting of ambulatory clinics and hospital sitesin [place], [place], [place] and [place]. This disclosure is being madepursuant to the Care Everywhere program and may not contain all information available regarding this patient. Last updated 18.[facility] [employer] Allergies No known active allergies Medications Be aware that medications may not be up to date on this document. Always verify current medications with the patient. No known medications Social History Tobacco Use Types Packs/Day Years Used Date Smoking Tobacco: Former Tobacco Cessation:Counseling Given: Yes Comments:Uses Nicotine Gum daily Alcohol Use Standard Drinks/Week Comments Yes 5 (1 standard drink = 0.6 oz pur e alcohol) Sex and Gender Information Value Date Recorded Sex Assigned at Not on file Gender Identity Not on file Sexual Orientation Not on file Last Filed Vital Signs Vital Sign Reading Time Taken Comments Blood Pressure 139/79 03/06/2023 4:53 AM CDT Pulse 119 03/06/2023 4:53 AM CDT Temperature 36.7 C (98.1 F) 03/06/2023 4:53 AM CDT Respiratory Rate 20 03/06/2023 4:53 AM CDT Oxygen Saturation 100% 03/06/2023 4:53 AM CDT Inhaled Oxygen Concentration - - Weight 82.6 kg (182 lb) 03/06/2023 4:53 AM CDT Height 180.3 cm (5' 11 ) 03/06/2023 4:53 AM CDT Body Mass Index 25.38 03/06/2023 4:53 AM CDT Procedures * COMPREHENSIVE METABOLIC PANEL(Performed 03/06/2023) * CBC W AUTO DIFFERENTIAL(Performed 03/06/2023) Results * (ABNORMAL) CBC W AUTO DIFFERENTIAL (03/06/2023 5:22 AM CDT) WBC 8.3 3.5 - 10.5 10 3/uL 03/06/2023 5:35 AM [facility] RBC 5.34 4.30 - 5.70 10 6/uL 03/06/2023 5:35 AM [facility] Hemoglobin 15.1 12.0 - 17.6 g/dL 03/06/2023 5:35 AM [facility] Hematocrit 44.8 35.2 - 51.7 % 03/06/2023 5:35 AM [facility] MCV 83.9 80.7 - 98.3 fL 03/06/2023 5:35 AM [facility] MCH 28.3 26.7 - 34.0 pg 03/06/2023 5:35 AM [facility] MCHC 33.7 30.8 - 35.9 g/dL 03/06/2023 5:35 AM [facility] RDW-SD 40.5 36.0 - 50.0 fL 03/06/2023 5:35 AM [facility] RDW-CV 13.3 11.2 - 14.8 % 03/06/2023 5:35 AM [facility] Platelet Count 190 150 - 400 10 3/uL 03/06/2023 5:35 AM [facility] MPV 9.0(L) 9.4 - 12.9 fL 03/06/2023 5:35 AM [facility] nRBC Absolute 0.00 0 10 3/uL 03/06/2023 5:35 AM [facility] nRBC Auto 0.0 0 /100 WBC 03/06/2023 5:35 AM [facility] Neutrophils % 60.5 35.0 - 70.0 % 03/06/2023 5:35 AM [facility] Lymphocytes % 24.7 20.0 - 43.0 % 03/06/2023 5:35 AM T [facility] Monocytes % 14.0(H) 5.0 - 13.0 % 03/06/2023 5:35 AM [facility] Eosinophils % 0.1 0.0 - 6.0 % 03/06/2023 5:35 AM [facility] Basophil % 0.2 0.0 - 2.0 % 03/06/2023 5:35 AM [facility] Neutrophils Absolute 5.02 1.60 - 7.00 10 3/uL 03/06/2023 5:35 AM [facility] Lymphocyte Absolute 2.05 1.10 - 3.90 10 3/uL 03/06/2023 5:35 AM [facility] Monocytes Absolute 1.16(H) 0.26 - 1.07 10 3/uL 03/06/2023 5:35 AM [facility] Eosinophils Absolute 0.01 0.00 - 0.47 10 3/uL 03/06/2023 5:35 AM [facility] Basophils Absolute 0.02 0.00 - 0.08 10 3/uL 03/06/2023 5:35 AM [facility] Immature Granulocytes % 0.5 0.0 - 1.0 % 03/06/2023 5:35 AM [facility] Immature Granulocytes Absolute 0.04 03/06/2023 5:35 AM [facility] Blood BLOOD SPECIMEN / Unknown Venipuncture / Unknown 03/06/2023 5:22 AM CDT 03/06/2023 5:31 AM CDT Travis Carrion PA-C LAB - ANGELITA TOLOGY ORDERABLES [facility] [address] [place] [id number], [facility] [phone] * (ABNORMAL) COMPREHENSIVE METABOLIC PANEL (03/06/2023 5:22 AM CDT) BUN 12 7 - 26 mg/dL 03/06/2023 5:57 AM T [facility] Creatinine 0.70(L) 0.71 - 1.16 mg/dL 03/06/2023 5:57 AM [facility] Sodium 140 136 - 145 mmol/L 03/06/2023 5:57 AM [facility] Potassium 4.4 3.5 - 4.5 mmol/L 03/06/2023 5:57 AM [facility] Chloride 102 98 - 107 mmol/L 03/06/2023 5:57 AM [facility] CO2 29 22 - 29 mmol/L 03/06/2023 5:57 AM [facility] Glucose 128(H) 70 - 115 mg/dL 03/06/2023 5:57 AM [facility] Calcium 9.6 8.4 - 10.2 mg/dL 03/06/2023 5:57 AM [facility] Protein Total 7.6 6.0 - 8.3 g/dL 03/06/2023 5:57 AM [facility] Albumin 3.9 3.4 - 5.0 g/dL 03/06/2023 5:57 AM [facility] Bilirubin Total 1.0 0.2 - 1.2 mg/dL 03/06/2023 5:57 AM [facility] Alkaline Phosphatase 84 40 - 150 U/L 03/06/2023 5:57 AM [facility] ALT 28 5 - 55 U/L 03/06/2023 5:57 AM [facility] AST 15 5 - 34 U/L 03/06/2023 5:57 AM [facility] Anion Gap 9 6 - 16 03/06/2023 5:57 AM [facility] BUN/Creatinine Ratio 17 7 - 23 03/06/2023 5:57 AM [facility] Osmolality Calculated 291 275 - 295 mOsm/kg 03/06/2023 5:57 AM [facility] Albumin/Globulin Ratio 1.1 1.1 - 2.3 03/06/2023 5:57 AM [facility] eGFR by CKD-EPI >90 >=90 mL/min/1.7 3 m2 03/06/2023 5:57 AM [facility] Blood BLOOD SPECIMEN / Unknown Venipuncture / Unknown 03/06/2023 5:22 AM CDT 03/06/2023 5:31 AM CDT Travis Carrion PA-C LAB - CHEM ISTRY ORDERABLES [facility] [address] [place] [phone], [facility] [phone] Care Teams Systems Technologist Relationship Specialty Start Date End Date Enrico Kraft MD [address] [place] [address] PCP - General Family Medicine 03/06/23
--- OUTSIDE RECORDS SUMMARY | 2024-07-18 23:15 | XMS_ITS | Referral Summary ---
Author Organization [facility] Address [address] [place] [address] Care Team Providers Care Outpatient Case Manager Name Role Phone Enrico Kraft MD Primary Care Provider [phone] Source Comments [facility],non-owned Affiliates and Associated Physician Practices is amultiple site organization consisting of ambulatory clinics and hospital sitesin [place], [place], [place] and [place]. This disclosure is being madepursuant to the Care Everywhere program and may not contain all information available regarding this patient. Last updated 18.[facility] [employer] Allergies No known active allergies Medications Be [...] Mass Index 25.38 03/06/2023 4:53 AM CDT Plan of Treatment Not on file Care Teams Outpatient Case Manager Relationship Specialty Start Date End Date Enrico Kraft MD [address] [place] [address] PCP - General Family Medicine 03/06/23
--- OUTSIDE RECORDS SUMMARY | 2024-07-18 23:15 | XMS_ITS ---
Author Organization [facility] [employer] Address [address] [place] [address] Care Team Providers Care Pediatric Dentist Name Role Phone Enrico Kraft MD Primary Care Provider UnavailRoopa Lawler Unavailable [phone] Bladimir Infante Unavailable [phone] REASON FOR VISIT phq less than 5, mild depression, anxiety and difficulty controlling thought patterns , MIPS Tobacco screening Medications Medication SIG (Take, Route, Frequency, Duration) Notes Start Date End Date Status busPIRone HCl 5 MG Oral 09/15/2023 Unknown L-Methylfolate 7.5 MG Oral 09/15/2023 Unknown Ciclopirox 8% External 09/15/2023 Unkno wn Adderall 10 MG 1 tablet Oral in the morning and half a tablet in the afternoon for 30 days 05/11/2024 Active Sertraline HCl 50 MG 1.5 tablet Oral Onc e a day for 90 days Active hydrOXYzine HCl 25 MG Oral 09/15/2023 Unknown Amphetamine-Dextroamphetam ine 10 MG Oral 09/15/2023 Unknown Terbinafine HCl 250 MG Oral 09/15/2023 Unknown Social History Tobacco Use: Social History Observation Description Date Details (start date - stop date) Unknown Sex Assigned At : Social History Observation Description Sex Assigned At Male Tobacco Control (Standard) Question Answer Notes Tobacco use: Uses tobacco in other forms Encounters Encounter Location Date Provider Diagnosis [facility] [address] [place] [address] 05/24/2024 Bladimir Infante Generalized anxiety disorder F41.1 and Depression, major, recurrent, mild F33.0 Assessments Encounter Date Diagnosis (ICD Code) Assessment Notes Treatment Notes Treatment Clinical Notes Section Notes 05/24/2024 Generalized anxiety disorder (ICD-10 - F41.1) 28 year old single never male seen today for initial assessment to start individual psychotherapy. Stated that he has seen Roopa Larkinag for the past month for medication therapy. [...] patient therapy reported.Client born and raised in [place] but later moved to [place], [place] to parents who have been for [...] about being him is these issues (anxiety). 05/24/2024 Depression, major, recurrent, mild (ICD-10 - F33.0) 28 year old single never male seen today for initial assessment to start individual psychotherapy. Stated that he has seen Roopa Jorje for the past month for medication therapy. [...] patient therapy reported.Client born and raised in [place] but later moved to [place] to parents who have been for [...] about being him is these issues (anxiety). 05/24/2024 Other Client participated in individual psychotherapy(CB T/Supportive) related to his hx of anxiety and depression. Based on today's session continued psychotherapy is recommended with no changes to treatment plan. Client presented to [employer] well groomed and fully oriented with no risk of harm to self or others. Client verbal and engaged through out session with appropriate mood and affect, much improved from previous session. Reported upon presentatoon that he has been pretty good with things much better then they were during previous session on 05.04.2024. Noted that he and kali returned kitten. Stated that he has felt much better with less anxiety since returning kitten. Added that he has been doing a better job of listening to his body and not being caught in others expectations of him. Moreover acknowledged that he needs to be more aware of the unrealistic expectations that he has of himself. Client further shared that he and kali have opened up a joint [employer] account which has been a big relief for him. Client receptive to session feedback. Next session in three weeks. 28 year old single never male seen today for initial assessment to start individual psychotherapy. Stated that he has seen Rooap Recinos for the past month for medication [...] patient therapy reported.Client born and raised in [place] but later moved to [place] to parents who have been for [...] Reason: Provider Name:Roopa Recinos, 08/16/2024 04:30:00 PM, [address] [facility] [address], [facility] [address], [address], Progress Notes * JOHANNA ROSENBERG ADOB:1995 (29 yo M)Acc No.[id number]:05/24/2024 Patient: JOHANNA GREENFIELD Provider: Alberto Infante LCPC :1995 A ge:29 Y S ex:Male Date:05/24/2024 Address:[address] [place], [place] [id number] Pcp:Enrioc Kraft MD Data: * Time Tracker: * Date Start Time End Time Duration User Type Captured By Mode Notes 05/24/2024 03:03 PM 03:57 PM 00:54:43 Therapist Bladimir Infante Timer * Chief Complaints: * P hq less than 5 mild depression, anxiety and difficulty controlling thought patterns MIPS Tobacco screening * HPI: D epression Screening: BART-7 (2018 Edition) F eeling nervous, anxious, or on edge S everal days N ot being able to stop or control worrying?Several days W orrying too much about different things S everal days T rouble relaxing S ever B eing so restless that it is hard to sit still N ot at all B ecoming easily annoyed or irritable S ever F eeling afraid as if something awful might happen S ever Referral source My dad . A nger [...] therapy active counseling . H omicidal ideation H x denied by client . M ood lability [...] organizing tasks and activities . P sychotherapy H x denied for psychotherapy; currently sees A lbert?. P TSD H x denied by client. M abhijeet N o impairment present or history of memory concerns reports. . 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 C urrent probation / parole n o . H istory of arrests n o . H istory of incarcerations n o . L egal history n o . P ending charges n o . C [place]-Suicide Severity Rating Scale: Suicide Risk (CSRS-screener) i n the past one month Have you wished you were or wished you could go to sleep and not wake up? N o i n the past one month Have you actually had any thoughts of killing yourself? N o H ave you ever done anything, started to do anything, or prepared to do anything to end your life? N o D epression screening: PHQ-9 L ittle interest or pleasure in doing things?Several days F eeling down, depressed, or hopeless S everal days T rouble falling or staying asleep, or sleeping too much N ot at all F eeling tired or having little energy S everal days P oor appetite or overeating N ot at all F eeling bad about yourself or that you are a failure, or have let yourself or your family down S everal days T rouble concentrating on things, such as [...] N egative S uicide Risk Assessment Performed 0 05/24/2024 * Family History: F ather: alive 58 yrs, Anxiety disorder , Hypertensive disorder . M other: alive 55 yrs.?Paternal Grandfather: Malignant tumor of lung . B leandra: alive 31 yrs. * Social History: T obacco Use: T obacco Control (Standard) T obacco use: U ses tobacco in other forms M igrated Social History: M igrated Social History: Alcohol Intake: Occasional 05/14/2023,Tobacco Years: Never smoker 05/14/2023. * Medications: T akingSertraline HCl 50 MG Tablet 1.5 tablet Oral Once a day Adderall 10 MG Tablet 1 tablet Oral in the morning and half a tablet in the afternoon Taking Sertraline HCl 50 MG Tablet 1.5 tablet Oral Once a day Taking Adderall 10 MG Tablet 1 tablet Oral in the morning and half a tablet in the afternoon UnknownbusPIRone HCl 5 MG Tablet Oral L-Methylfolate 7.5 MG Tablet Oral Ciclopirox 8% Solution External hydrOXYzine HCl 25 MG Tablet Oral Amphetamine-Dextroamphetamine 10 MG Tablet Oral Terbinafine HCl 250 MG Tablet Oral Medication List reviewed and reconciled with the patientUnknown busPIRone HCl 5 MG Tablet Oral Unknown L-Methylfolate 7.5 MG Tablet Oral Unknown Ciclopirox 8% Solution External Unknown hydrOXYzine HCl 25 MG Tablet Oral Unknown Amphetamine-Dextroamphetamine 10 MG Tablet Oral Unknown Terbinafine HCl 250 MG Tablet Oral Medication List reviewed and reconciled with the patient Assessment: * Assessment: 1. G eneralized anxiety disorder - F41.1 (Primary) 2 . D epression, major, recurrent, mild - F33.0 28 year old single [...] patient therapy reported.Client born and raised in [place] but later moved to [place] to parents who have been for [...] 9 6127 BEHAV ASSMT W/SCORE & DOCD/STAND [id number] Pt scrn tbco and id as [id number] PSYCHOTHERAPY W/PATIENT 60 MINUTES * Preventive Medicine: Counseling: C ommunication to patient: Counseled the Patient on tobacco use; cessation provided 0 05/24/2024 S moking Cessation counseling done Discuss the importance of quitting smoking,. * Follow Up: 3 Weeks * Billing Information: * Visit Code: * Procedure Codes: 71647 BEHAV ASSMT W/SCORE & DOCD/STAND INSTRUMENT. G9902 Pt scrn tbco and id as user. 31941 PSYCHOTHERAPY W/PATIENT 60 MINUTES. * ITER Sign off status: Completed Signatures: No Ad Hoc Signature Added true * Provider: Alberto Infante LCPC Date: 0 05/24/2024 Generated for Hector dejesus/Faxing/eTransmitting on: 0 07/18/2024 11:15 PM CDT History and Physical Notes * HPI (History of Present Illness) Category Sub-Category Detail Notes Category Not es Depression screening PHQ-9 Little inte rest or pleasure in doing things: Several days Feeling down, depressed, or hopeless: Se veral days Trouble falling or staying asleep, or sl eeping too much: Not at all Feeling tired or having little energy: S everal days Poor appetite or overeating: Not at all Feeling bad about yourself o r that you are a failure, or have let yourself or your family down: Several days Trouble concentrating on thi ngs, such as [...] Findings: N egative Suicide Risk Assessment Performed: 05/24 Depression Screening BART-7 (2018 Edition) Feeling nervous, anxious, or on edge: Several days Referral source My dad . Anger management Hx denied [...] memory concerns reports. . 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 Current probation / parole no . History of arrests no . History of incarcerations no . Legal history no . Pending charges no . Not being able to stop or control worryi ng: Several days Worrying too much about different things : Several days Trouble relaxing: Several days Being so restless that it is hard to sit still: Not at all Becoming easily annoyed or irritable: Se veral days Feeling afraid as if something awful angie ht happen: Several days [place]-Suicide Severity Rating Scale Suicide Risk (CSRS-screener) in the past one month Have you wished you were or wished you could go to sleep and not wake up?: No in the past one month Have y ou actually had any thoughts of killing yourself?: No Have you ever done anything, started to do anything, or prepared to do anything to end your life?: No
--- OUTSIDE RECORDS SUMMARY | 2024-07-18 23:15 | XMS_ITS | Clinical Summary ---
Author Organization [facility] Address [address] [place] [address] Care Team Providers Care Mechanical Cad Drafter Name Role Phone Enrico Kraft MD Primary Care Provider [phone] Source Comments [facility] [employer],non-owned Affiliates and Associated Physician Practices is amultiple site organization consisting of ambulatory clinics and hospital sitesin [place], [place], [place] and [place]. This disclosure is being madepursuant to the Care Everywhere program and may not contain all information available regarding this patient. Last updated 18.[facility] [employer] Allergies No known active allergies Medications Be [...] 03/06/2023 4:53 AM CDT Plan of Treatment Health Maintenance Due Date Last Done Comments HIV SCREENING 01/18/2012 HEPATITIS C SCREENING 01/13/2015 DTAP/TDAP/TD VACCINES (1 - Tdap) 01/18/2016 HEPATITIS B VACCINE (1 of 3 - 19+ 3-dose series) 01/18/2016 COVID-19 VACCINE (5 - season) 2024 03/21/2022, 04/25/2021, 08/19/2020, Additional history exists INFLUENZA VACCINE (#1) 2024 2, 03/20/2019, 04/04/2015, Additional history exists DEPRESSION SCREENING 05/05/2024 ZOSTER VACCINE (1 of 2) 2047 HIB VACCINE Aged Out No longer eligi ble based on patient's age to complete this topic HPV VACCINE Aged Out No longer eligi ble based on patient's age to complete this topic MENINGOCOCCAL (Group B) VACCINE SHARED DECISION-MAKING Aged Out No longer eligible based on patient's age to complete this topic MENINGOCOCCAL GROUPS A/C/Y/W VACCINE Aged Out No longer eligible based on patient's age to complete this topic PNEUMOCOCCAL VACCINE Aged Out No long er eligible based on patient's age to complete this topic Care Teams Mechanical Cad Drafter Relationship Specialty Start Date End Date Enrico Kraft MD [address] [place] [address] PCP - General Family Medicine 03/06/23
--- OUTSIDE RECORDS SUMMARY | 2024-07-19 00:43 | XMS_ITS | Patient Health Summary ---
Author Organization [facility] [employer] Address [address] [place] [address] Care Team Providers Care Stand Grinder Name Role Phone Enrico Kraft MD Primary Care Provider [phone] Note from [facility] [employer] [facility],non-owned Affiliates and Associated Physician Practices is amultiple site organization consisting of ambulatory clinics and hospital sitesin [place], [place], [place] and [place]. This disclosure is being madepursuant to the Care Everywhere program and may not contain all information available regarding this patient. Last updated 18.[facility] [employer] Allergies No known active allergies Medications Be [...] - 10.5 10 3/uL 03/06/2023 5:[address] [facility] RBC 5.34 4.30 - 5.70 10 6/uL 03/06/2023 5:[address] [facility] Hemoglobin 15.1 12.0 - 17.6 g/dL 03/06/2023 5:[address] [facility] Hematocrit 44.8 35.2 - 51.7 % 03/06/2023 5:[address] [facility] MCV 83.9 80.7 - 98.3 fL 03/06/2023 5:[address] [facility] MCH 28.3 26.7 - 34.0 pg 03/06/2023 5:[address] [facility] MCHC 33.7 30.8 - 35.9 g/dL 03/06/2023 5:[address] [facility] RDW-SD 40.5 36.0 - 50.0 fL 03/06/2023 5:[address] [facility] RDW-CV 13.3 11.2 - 14.8 % 03/06/2023 5:[address] [facility] Platelet Count 190 150 - 400 10 3/uL 03/06/2023 5:[address] [facility] MPV 9.0(L) 9.4 - 12.9 fL 03/06/2023 5:[address] [facility] nRBC Absolute 0.00 0 10 3/uL 03/06/2023 5:[address] [facility] nRBC Auto 0.0 0 /100 WBC 03/06/2023 5:[address] [facility] Neutrophils % 60.5 35.0 - 70.0 % 03/06/2023 5:[address] [facility] Lymphocytes % 24.7 20.0 - 43.0 % 03/06/2023 5:35 AM T [facility] Monocytes % 14.0(H) 5.0 - 13.0 % 03/06/2023 5:[address] [facility] Eosinophils % 0.1 0.0 - 6.0 % 03/06/2023 5:[address] [facility] Basophil % 0.2 0.0 - 2.0 % 03/06/2023 5:[address] [facility] Neutrophils Absolute 5.02 1.60 - 7.00 10 3/uL 03/06/2023 5:[address] [facility] Lymphocyte Absolute 2.05 1.10 - 3.90 10 3/uL 03/06/2023 5:[address] [facility] Monocytes Absolute 1.16(H) 0.26 - 1.07 10 3/uL 03/06/2023 5:[address] [facility] Eosinophils Absolute 0.01 0.00 - 0.47 10 3/uL 03/06/2023 5:[address] [facility] Basophils Absolute 0.02 0.00 - 0.08 10 3/uL 03/06/2023 5:[address] [facility] Immature Granulocytes % 0.5 0.0 - 1.0 % 03/06/2023 5:[address] [facility] Immature Granulocytes Absolute 0.04 03/06/2023 5:[address] [facility] Blood BLOOD SPECIMEN / Unknown Venipuncture / Unknown 03/06/2023 5:22 AM CDT 03/06/2023 5:31 AM CDT Travis Carrion PA-C LAB - ANGELITA TOLOGY ORDERABLES [facility] [address] [place] [address], [facility] [phone] * (ABNORMAL) COMPREHENSIVE METABOLIC PANEL (03/06/2023 5:22 AM CDT) BUN 12 7 - 26 mg/dL 03/06/2023 5:57 AM T [facility] Creatinine 0.70(L) 0.71 - 1.16 mg/dL 03/06/2023 5:[address] [facility] Sodium 140 136 - 145 mmol/L 03/06/2023 5:[address] [facility] Potassium 4.4 3.5 - 4.5 mmol/L 03/06/2023 5:[address] [facility] Chloride 102 98 - 107 mmol/L 03/06/2023 5:[address] [facility] CO2 29 22 - 29 mmol/L 03/06/2023 5:[address] [facility] Glucose 128(H) 70 - 115 mg/dL 03/06/2023 5:[address] [facility] Calcium 9.6 8.4 - 10.2 mg/dL 03/06/2023 5:[address] [facility] Protein Total 7.6 6.0 - 8.3 g/dL 03/06/2023 5:[address] [facility] Albumin 3.9 3.4 - 5.0 g/dL 03/06/2023 5:[address] [facility] Bilirubin Total 1.0 0.2 - 1.2 mg/dL 03/06/2023 5:[address] [facility] Alkaline Phosphatase 84 40 - 150 U/L 03/06/2023 5:[address] [facility] ALT 28 5 - 55 U/L 03/06/2023 5:[address] [facility] AST 15 5 - 34 U/L 03/06/2023 5:[address] [facility] Anion Gap 9 6 - 16 03/06/2023 5:[address] [facility] BUN/Creatinine Ratio 17 7 - 23 03/06/2023 5:[address] [facility] Osmolality Calculated 291 275 - 295 mOsm/kg 03/06/2023 5:[address] [facility] Albumin/Globulin Ratio 1.1 1.1 - 2.3 03/06/2023 5:[address] [facility] eGFR by CKD-EPI >90 >=90 mL/min/1.7 3 m2 03/06/2023 5:[address] [facility] Blood BLOOD SPECIMEN / Unknown Venipuncture / Unknown 03/06/2023 5:22 AM CDT 03/06/2023 5:31 AM CDT Travis Carrion PA-C LAB - CHEM ISTRY ORDERABLES [facility] [address] [place] [address], [facility] [phone] Care Teams Stand Grinder Relationship Specialty Start Date End Date Enrico Kraft MD [address] [place] [address] PCP - General Family Medicine 03/06/23
--- OUTSIDE RECORDS SUMMARY | 2024-07-19 00:43 | XMS_ITS ---
Author Organization [facility] [employer] [facility] Address [facility] [facility] [address] [place] [address] Care Team Providers Care Retail Associate Name Role Phone Enrico Kraft MD Primary Care Provider Roopa Martinez Unavailable [phone] Allergies No Known Allergies REASON FOR VISIT [...] Male Encounters Encounter Location Date [facility] [address] [facility] [address] [place] [address] 06/22/2024 Roopa Recinos Attention-deficit hyperactivity disorder, combined [...] policy, only prescribed to local pharmacy in [place], no early refills on control substance. [...] policy, only prescribed to local pharmacy in [place], no early refills on control substance. [...] up Provider Name:Roopa Recinos, 08/16/2024 04:30:00 PM, [address], [facility] [address], [place], [address], Progress Notes * CHET JOHANNA ADOB:1995 (29 yo M)Acc No.[id number]:06/22/2024 Patient: JOHANNA GREENFIELD Provider: TORSTEN ADHIKARIHNP :1995 A ge:29 Y S ex:Male Date:06/22/2024 Address:[address] [place], [place] [id number] Pcp:Enrico Kraft MD Check In:03:11 PM CSTCheck O ut:03:20 PM METROLOGY MANAGER Subjective: * Chief Complaints: * [facility] [...] his fiance decided to get at the [employer], although not telling anyone until their ceremony [...] No children. Has master's degree. 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 Medical hx: Denies chronic medical history. [...] complains of a nxiety. C lissa Deras [facility] for details. * Medical History: * [...] 9 6127 BEHAV ASSMT W/SCORE & DOCD/STAND [id number] VISIT COMPLEXITY INHERENT TO ONGOING CARE RELATED TO A PATIENT'S SINGLE, SERIOUS CONDITION OR A COMPLEX [id number] CLIN DEPRESSION SCREEN DOC * Follow Up: 3 Months (Reason: med follow up) * Billing Information: * Visit Code: 69222 OFFICE OUTPATIENT VISIT 25 MINUTES DETAILED HISTORY AND EXAM/MODERATE MEDICAL DECISION MAKING. Modifiers: 95 * Procedure Codes: 20663 BEHAV ASSMT W/SCORE & DOCD/STAND INSTRUMENT. G2211 VISIT COMPLEXITY INHERENT TO ONGOING CARE RELATED TO A PATIENT'S SINGLE, SERIOUS CONDITION OR A COMPLEX CONDITION. G8431 CLIN DEPRESSION SCREEN DOC. * OLOGY MANAGER Sign off status: Completed true * Provider: DOMINGO ADHIKARI Date: 0 06/22/2024 Generated for Hector dejesus/Cory/Andrea on: 0 07/19/2024 12:42 AM CDT History and Physical Notes * HPI (History of Present Illness) Category Sub-Category Detail Notes Category Not es History of Presenting Problem Anxiety Rates anxiety 2/10 with 10 b eing most severe. Denies recent panic attacks. Here for medication follow up. No medication changes made last apt. Reports he is doing well. He and his fiance decided to get [facility] the [facility], although not telling anyone until their [...] No children. Has master's degree. 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 Medical hx: Denies chronic medical history. [...]
--- OUTSIDE RECORDS SUMMARY | 2024-07-19 00:43 | XMS_ITS | Referral Summary ---
Author Organization [facility] Address [address] [facility] [place] [address] Care Team Providers Care Helpdesk Administrator Name Role Phone Enrico Kraft MD Primary Care Provider [phone] Source Comments [facility],non-owned Affiliates and Associated Physician Practices is amultiple site organization consisting of ambulatory clinics and hospital sitesin [place], [place], [place]. This disclosure is being madepursuant to the Care Everywhere program and may not contain all information available regarding this patient. Last updated 18.[facility] [employer] Allergies No known active allergies Medications Be [...] of Treatment Not on file Care Teams Helpdesk Administrator Relationship Specialty Start Date End Date Enrico Kraft MD [address] [place] [address] PCP - General Family Medicine 03/06/23
--- OUTSIDE RECORDS SUMMARY | 2024-07-19 00:43 | XMS_ITS ---
Author Organization [facility] Address [address] [place] [address] Care Team Providers Care Statement Clerk Name Role Phone Enrico Kraft MD Primary Care Provider UnavailRoopa Lawler Unavailable [phone] Bladimir Infante Unavailable [phone] REASON FOR VISIT phq less than 5, [...] forms Encounters Encounter Location Date Provider Diagnosis [facility] [employer] [address] [place] [address] 05/24/2024 Bladimir Infante Generalized anxiety disorder F41.1 [...] patient therapy reported.Client born and raised in [place] but later moved to [place], [place] to parents who have been for [...] patient therapy reported.Client born [place] raised in [place] but later moved to [place] to parents who have been for [...] changes to treatment plan. Client presented to [facility] well groomed and fully oriented with no [...] and kali have opened up a joint [employer] account which has been a big relief [...] patient therapy reported.Client born and raised in [place] but later moved to [place] to parents who have been for [...] Reason: Provider Name:Roopa Recinos, 08/16/2024 04:30:00 PM, [address], [facility] [address], [place], [address], Progress Notes * JOHANNA ROSENBERG ADOB:1995 (29 yo M)Acc No.[id number]:05/24/2024 Patient: JOHANNA GREENFIELD Provider: Alberto Infante LCPC :1995 A ge:29 Y S ex:Male Date:05/24/2024 Address:[address] [place], [place] [id number] Pcp:Enrico Kraft MD Data: * Time Tracker: * [...] concerns reports. . 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 C urrent probation / [...] patient therapy reported.Client born and raised in [place] but later moved to [place] to parents who have been for [...] 9 [id number] BEHAV ASSMT W/SCORE & DOCD/STAND [id number] Pt scrn tbco and id as [id number] PSYCHOTHERAPY W/PATIENT 60 MINUTES * Preventive Medicine: Counseling: C ommunication to patient: Counseled the Patient on tobacco use; cessation provided 0 05/24/2024 S moking Cessation counseling done Discuss the importance of quitting smoking,. * Follow Up: 3 Weeks * Billing Information: * Visit Code: * Procedure Codes: 00659 BEHAV ASSMT W/SCORE & DOCD/STAND INSTRUMENT. G9902 Pt scrn tbco and id as user. 81203 PSYCHOTHERAPY W/PATIENT 60 MINUTES. * NERY OPERATOR REFORMING UNIT Sign off status: Completed Signatures: No Ad Hoc Signature Added true * Provider: Alberto Infante LCPC Date: 0 05/24/2024 Generated for Hector dejesus/Faxing/eTransmitting on: 0 07/19/2024 12:42 AM CDT History [...] memory concerns reports. . 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 Current probation / parole no [...] something awful angie ht happen: Several days [place]-Suicide Severity Rating Scale Suicide Risk (CSRS-screener) in [...]
--- OUTSIDE RECORDS SUMMARY | 2024-07-19 00:43 | XMS_ITS | Clinical Summary ---
Author Organization [facility] Address [address] [place] [address] Care Team Providers Care Pile Driver Operator Name Role Phone Enrico Kraft MD Primary Care Provider [phone] Source Comments [facility],non-owned Affiliates and Associated Physician Practices is amultiple site organization consisting of ambulatory clinics and hospital sitesin [place], [place], [place] and [place]. This disclosure is being madepursuant to the Care Everywhere program and may not contain all information available regarding this patient. Last updated 18.[facility] Allergies No known active allergies Medications Be [...] age to complete this topic Care Teams Pile Driver Operator Relationship Specialty Start Date End Date Enrico Kraft MD [address] [place] [address] PCP - General Family Medicine 03/06/23
--- NOTE | 2024-07-19 01:13 | ED_ITS ---
HPI - Wound/Laceration General Chief Complaint: Wound/Laceration Stated Complaint: left index finger injury Time Seen by Provider: 07/19/24 00:31 Source: patient Mode of arrival: ambulatory Limitations: no limitations History of Present Illness HPI narrative: This is a 29 year old male that presents to the ER for left 2nd finger laceration. Reports he accidentally cut it while wood working. Unsure of last tetanus vaccination. Denies decreased ROM or numbness. Related Data Allergies Allergy/AdvReac Type Severity Reaction Status Date / Time No Known Allergies Allergy Unverified 07/18/24 23:26 Review of Systems Review of Systems: CONSTITUTIONAL: Denies fever SKIN: Reports laceration NEUROLOGIC: Denies numbness All systems reviewed & are unremarkable except as noted in HPI and below PMFSH Past Medical History Medical History (Updated 07/19/24 @ 01:51 by Jovita Orona PA-C) BART (generalized anxiety disorder) Social History Social History (Updated 06/04/23 @ 13:56 by Shweta Davis MA) Smoking status: Never smoker Alcohol intake: current Substance use: never Gender identity (if verbalized by the patient): Male Exam Narrative: GENERAL: Well-appearing, well-nourished, and in no acute distress. HEAD: Normocephalic, atraumatic. EYES: EOMI. EXTREMITIES: Normal range of motion. No edema. 2cm linear laceration into subcutaneous tissue to the left 2nd finger palmar surface over the middle phalanx SKIN: Warm, dry, no rash. NEURO: No focal deficits. Alert and oriented x3. PSYCH: Normal mood and affect Course Vital Signs Vital signs: Vital Signs Temperature 97.6 F 07/18/24 23:13 Pulse Rate 101 H 07/18/24 23:13 Respiratory Rate 20 07/18/24 23:13 Blood Pressure 141/77 H 07/18/24 23:13 Pulse Oximetry 100 07/18/24 23:13 Oxygen Delivery Room Air 07/18/24 23:13 Temperature 97.6 F 07/18/24 23:13 Pulse Rate 101 H 07/18/24 23:13 Respiratory Rate 20 07/18/24 23:13 Blood Pressure 141/77 H 07/18/24 23:13 Pulse Oximetry 100 07/18/24 23:13 Oxygen Delivery Room Air 07/18/24 23:13 Procedures Laceration Laceration 1: Date: 07/19/24 Time: 01:52 Site: hand Side (If applicable): left Size (cm): 2 Description: linear Depth: simple, single layer Local Anesthetic: lidocaine 1% Amount of anesthesia used (mL): 2 Pre-repair: wound explored and irrigated ====== Skin Level ====== Skin layer closed with: nylon Size (cm): 4-0 Number of sutures: 3 Technique: simple, interrupted ====== Subcutaneous Layer ====== ====== Muscle Layer ====== ====== Tendon Layer ====== MDM - Wound/Laceration MDM Narrative Medical decision making narrative: Patient presents the emergency department for laceration to the left 2nd finger sustained just prior to arrival. Patient is neurovascularly intact. A 2nd finger x-ray without acute osseous abnormalities or evidence of foreign body. Laceration was irrigated and closed with sutures. Patient updated on tetanus vaccination. He is to follow up with primary provider. He was given warnings to return to the ER Differential Diagnosis Differential diagnosis: Likely laceration, abrasion and avulsion of skin Imaging Data My impression: Left 2nd finger x-ray: No acute osseous abnormality or evidence of foreign body Critical Care Time Critical Care Time Critical Care Time: No Discharge Plan Discharge Clinical Impression: Laceration Patient Disposition: Home, Self-Care Condition: Stable Instructions: Care For Your Stitches (ED), Laceration (ED) Additional Instructions: Return to the emergency department if you experience fever, redness or swelling of your wound, abnormal drainage from your wound, or any other symptoms that are concerning to you. Apply antibiotic ointment daily. Do not soak the wound. Clean with mild soap and water daily Follow-up with your primary care doctor for suture removal in 10-14 days. Patient Language: Vietnamese Prescriptions: No Action buspirone 5 mg tablet 5 mg PO TID Qty: 90 1RF Paxlovid 300 mg (150 mg x 2)-100 mg tablets,dose pack See Rx Instructions PO .COMPLEX Qty: 30 0RF Rx Instructions: take TWO 150 mg tablets of nirmatrelvir with ONE 100 mg tablet of ritonavir twice daily for 5 days PO Follow-up/Referrals: Enrico Kraft MD [Primary Care Provider] -
[2024-07-19] MEDS: TETANUS,DIPHTHERIA,AC PERTUSSIS ADULT (0.5 ML) BOOSTRIX IM (01:17)
[2024-07-19] MEDS: IBUPROFEN 600 MG TABLET PO (01:18)
== END 2024-07-19 02:10 | disposition home or self-care (01) ==
PROVIDERS: Emergency Provider Physician Assistant; PCP Family Medicine
DX: S61.211A Laceration without foreign body of left index finger without damage to nail, initial encounter (principal); W45.8XXA Other foreign body or object entering through skin, initial encounter; F41.1 Generalized anxiety disorder; Z23 Encounter for immunization
CPT/HCPCS: 12001; 73140; 90471; 90715; 99283; A9270

== ENCOUNTER 2024-08-24 14:09 | Outpatient (CLI) | payer BC, SELFPAY ==
--- NOTE | ~2024-08-24 | MR_ITS ---
MRI of the left hand Clinical history left index finger laceration TECHNIQUE: Axial T1-weighted, STIR, and T2 fat-sat images, coronal T1-weighted and T2 fat-sat images, and sagittal T1-weighted and STIR images were acquired. FINDINGS: Bone marrow signals are unremarkable. No fracture or bone marrow edema. No evidence for ost eitis. Joint spaces throughout the hand are intact. No evidence of degenerative or erosive arthropath y. No joint effusion. Collateral ligaments appear intact throughout the visualized joints. Suggestion of focal increased signal in the distal flexor tendon of the index finger at the level of the middle phalanx with minimal irregularity. No complete rupture evident.. No soft tissue mass or fl uid collection. There is minimal soft tissue edema of the distal index finger, nonspecific. IMPRESSION: Questionable low-grade injury or strain of the distal flexor tendon of the index finger. No complete or high-grade tear seen. Mild amorphous soft tissue edema in the distal index finger. Reviewed, dictated and finalized at [facility]. IMPRESSION: Questionable low-grade injury or strain of the distal flexor tendon of the inde x finger. No complete or high-grade tear seen. Mild amorphous soft tissue edema in the distal index finger.
== END 2024-08-24 14:10 | disposition home or self-care (01) ==
LOC: MICIMG 14:10
PROVIDERS: PCP Family Medicine; Visit Provider Plastic Surgery
DX: S66.121A Laceration of flexor muscle, fascia and tendon of left index finger at wrist and hand level, initial encounter (principal); X58.XXXA Exposure to other specified factors, initial encounter
CPT/HCPCS: 73218